=== PATIENT | female | born 2005 | race African-American/Black ===

== ENCOUNTER 2025-04-24 12:40 | Emergency (ER) | payer OTHER, SELFPAY ==
[~2025-04-24] VITALS: Ht 152.4 cm; Wt 56.2 kg
[2025-04-24 14:16] LABS: AMPHETAMINES LEVEL URINE NEGATIVE (NEGATIVE)
[2025-04-24 14:17] LABS: BARBITURATES URINE NEGATIVE (NEGATIVE); BENZODIAZEPINES URINE NEGATIVE (NEGATIVE); CANNABINOIDS URINE NEGATIVE (NEGATIVE); COCAINE METABOLITE URINE NEGATIVE (NEGATIVE); METHADONE URINE NEGATIVE (NEGATIVE); OPIATES URINE NEGATIVE (NEGATIVE); PHENCYCLIDINE URINE NEGATIVE (NEGATIVE)
[2025-04-24 14:29] LABS: PLATELET COUNT, AUTOMATED 296 10^3/uL (150-450)
[2025-04-24 14:58] LABS: ETHYL ALCOHOL (ETHANOL) < 0.003 % (0.000-0.010)
[2025-04-24 14:59] LABS: ALT/SGPT 35 U/L (7.0-40); AST/SGOT 26 U/L (<34); CALCIUM LEVEL 9.9 MG/DL (8.5-10.1); CARBON DIOXIDE LEVEL 23 MMOL/L (20-31); CHLORIDE LEVEL 104 MMOL/L (98-107); CREATININE FOR GFR 0.66 MG/DL (0.55-1.30); GLOMERULAR FILTRATION RATE > 90.0 (>60); POTASSIUM SERUM 3.8 MMOL/L (3.5-5.1); SALICYLATE LEVEL < 3.0 MG/DL (<30); SODIUM LEVEL 137 MMOL/L (136-145)
[2025-04-24 15:00] LABS: HCG, SERUM QUALITATIVE NEGATIVE (NEGATIVE)
[2025-04-24] MEDS ORDERED: HOME MED LIST COMPLETE! XX SCH (16:15)
[2025-04-24 17:35] VITALS: BP 139/75; TEMP 97.8; O2SAT 100
== END 2025-04-24 17:42 | disposition home or self-care (01) ==
LOC: EDBD 12:40 → M ED 12:40
DX: F43.0 Acute stress reaction (principal)

== ENCOUNTER → 2025-07-13 | Outpatient (CLI) | payer OTHER | LOC: M CARPUL 09:26 | PROVIDERS: ATTEND Student in an Organized Health Care Education/Training Program | DX: R06.02 Shortness of breath (principal) ==